=== PATIENT | male | born 1965 | race Caucasian/White ===

== ENCOUNTER → 2018-06-01 | Outpatient (REF) | payer BC | END | disposition home or self-care (01) | DRG 556 | LOC: DI 11:43 | PROVIDERS: ATTEND Orthopaedic Surgery | DX: M25.521 Pain in right elbow (principal) ==

== ENCOUNTER 2020-03-13 12:06 | Emergency (ER) | payer BC ==
[~2020-03-13] VITALS: Ht 180.3 cm; Wt 87.5 kg
[2020-03-13] MEDS ORDERED: MUPIROCIN21 TOP (15:59)
[2020-03-13 16:17] VITALS: BP 113/79
== END 2020-03-13 16:17 | disposition home or self-care (01) | DRG 605 ==
LOC: ED 12:06
DX: S80.211A Abrasion, right knee, initial encounter (principal); S80.01XA Contusion of right knee, initial encounter; J45.909 Unspecified asthma, uncomplicated; K21.9 Gastro-esophageal reflux disease without esophagitis; F17.200 Nicotine dependence, unspecified, uncomplicated; W11.XXXA Fall on and from ladder, initial encounter; Y92.009 Unspecified place in unspecified non-institutional (private) residence as the place of occurrence of the external cause